=== PATIENT | female | born 1990 | race African-American/Black ===

== ENCOUNTER 2017-03-01 17:43 | Emergency (ER) | payer SELFPAY ==
[~2017-03-01] VITALS: Ht 167.6 cm; Wt 62.0 kg
[2017-03-01 18:05] VITALS: BP 112/71
[2017-03-01] MEDS ORDERED: PREDNISONE 20MG TABLET PO ONE (18:30)
[2017-03-01] MEDS ORDERED: FAMOTIDINE 20MG TABLET PO ONE (18:30)
[2017-03-01] MEDS ORDERED: DIPHENHYDRAMINE 50MG CAPSULE PO ONE (18:30)
== END 2017-03-02 01:00 | disposition home or self-care (01) ==
LOC: ER 20:03
DX: L27.0 Generalized skin eruption due to drugs and medicaments taken internally (principal); T36.1X5A Adverse effect of cephalosporins and other beta-lactam antibiotics, initial encounter; Y92.098 Other place in other non-institutional residence as the place of occurrence of the external cause; N28.9 Disorder of kidney and ureter, unspecified
CPT/HCPCS: 81025; 99284; J7512; Q0163

== ENCOUNTER 2023-10-20 11:22 | Emergency (ER) | payer MEDICAID ==
[2023-10-20 11:56] VITALS: PULSE 64
== END 2023-10-20 13:08 | disposition left against medical advice (07) ==
LOC: ER 11:22
DX: R51.9 Headache, unspecified (principal); Z53.21 Procedure and treatment not carried out due to patient leaving prior to being seen by health care provider